=== PATIENT | female | born 1945 | race Caucasian/White ===

== ENCOUNTER 2023-08-10 08:59 | Emergency (ER) | payer MEDICARE ==
[~2023-08-10] VITALS: Ht 152.4 cm; Wt 80.9 kg
[2023-08-10 09:01] VITALS: BP 176/86; PULSE 75; TEMP 97.7; O2SAT 99
[2023-08-10] MEDS ORDERED: orphenadrine citrate 60mg/2ml inj. IM ONE (09:55)
[2023-08-10] MEDS ORDERED: gabapentin 100mg capsule PO ONE (09:55)
[2023-08-10] MEDS ORDERED: ibuprofen tablet 400 MG TABLET PO ONE (09:55)
[2023-08-10] MEDS ORDERED: HYDROcodone/acetaminophen 5mg/325mg tablet PO ONE (09:55)
[2023-08-10 10:28] VITALS: RESP 16
--- NOTE | 2023-08-10 11:22 | NUR ---
CELERY TIER GENERAL ASSESSMENT REVIEWED BY HALEY RN; APPROVED
== END 2023-08-10 14:03 | disposition home or self-care (01) ==
LOC: ER 08:59
DX: M79.2 Neuralgia and neuritis, unspecified (principal); Z91.041 Radiographic dye allergy status
CPT/HCPCS: 73564; 73590; 96372; 99284; J2360

== ENCOUNTER 2023-08-13 08:33 | Emergency (ER) | payer MEDICARE ==
[~2023-08-13] VITALS: Ht 152.4 cm; Wt 178.0 kg
[2023-08-13 08:48] VITALS: BP 152/93; PULSE 91; RESP 20; TEMP 97.4; O2SAT 100
[2023-08-13 10:43] LABS: WHITE BLOOD COUNT 9.4 X10'3 (4.5-11.0)
[2023-08-13 10:44] LABS: BASOPHILS % (AUTO) 0.3 % (0-1); EOSINOPHILS % (AUTO) 0.4 % (0-6); HEMATOCRIT 40.2 % (35.0-45.0); HEMOGLOBIN 13.8 g/dl (12.0-16.0); LYMPHOCYTES # (AUTO) 0.9 X10'3 (1.1-4.8); LYMPHOCYTES % (AUTO) 9.8 % (21-51); MEAN CORPUSCULAR HEMOGLOBIN 31.2 PG (27.0-31.0); MEAN CORPUSCULAR HGB CONC 34.4 g/dL (33.0-36.5); MEAN CORPUSCULAR VOLUME 90.5 FL (78-98); MEAN PLATELET VOLUME 8.3 FL (7.4-10.4); MONOCYTES # (AUTO) 0.6 X10'3 (0-0.9); MONOCYTES % (AUTO) 6.1 % (2-12); NEUTROPHILS # (AUTO) 7.8 X10'3 (1.8-7.7); NEUTROPHILS % (AUTO) 83.4 % (42-75); PLATELET COUNT 251 X10'3 (140-440); RED BLOOD COUNT 4.44 X10'6 (4.20-5.60)
[2023-08-13 10:48] LABS: APTT 28 SECONDS (22-32)
[2023-08-13 10:52] LABS: ALANINE AMINOTRANSFERASE 27 U/L (12-78); ALBUMIN 4.1 G/DL (3.4-5.0); ALBUMIN/GLOBULIN RATIO 1.3 (1.1-1.5); ALKALINE PHOSPHATASE 63 IU/L (46-116); ANION GAP 10 (8-16); ASPARTATE AMINO TRANSFERASE 29 U/L (10-37); BILIRUBIN,TOTAL 0.9 MG/DL (0.1-1.0); BLOOD UREA NITROGEN 10 MG/DL (7-18); BUN/CREATININE RATIO 7.9 (10.0-20.0); CALCIUM 9.5 MG/DL (8.5-10.1); CHLORIDE 104 MMOL/L (99-107); CREATININE 1.27 MG/DL (0.40-0.90); GLUCOSE 119 MG/DL (70-104); SODIUM 142 MMOL/L (135-145); TOTAL CARBON DIOXIDE 28.1 MMOL/L (24-32); TOTAL PROTEIN 7.3 G/DL (6.4-8.2); eCRCL 27 ML/MIN; eGFR 41 ML/MIN
[2023-08-13] MEDS ORDERED: potassium chloride 10mEq ER tablet PO STA (11:08)
[2023-08-13 13:39] LABS: OCCULT BLOOD STOOL NEGATIVE (Neg)
== END 2023-08-13 12:23 | disposition home or self-care (01) ==
LOC: ER 08:34
DX: K62.5 Hemorrhage of anus and rectum (principal); E87.6 Hypokalemia
CPT/HCPCS: 36415; 80053; 82272; 85025; 85730; 99283